=== PATIENT | male | born 1995 | race Two or more races ===

== ENCOUNTER 2024-09-11 16:15 | Emergency (ER) | payer OTHER ==
[~2024-09-11] VITALS: Ht 170.2 cm; Wt 107.0 kg
[2024-09-11 17:44] LABS: BASO % 0.5 % (0.1-1.2); EOS # 0.13 (0.04-0.54); EOS % 1.5 % (0.7-7.0); HEMATOCRIT 39.5 % (40.1-51.0); HEMOGLOBIN 13.6 g/dL (13.7-17.5); LYMPH # 2.09 (1.18-3.74); LYMPH % 24.6 % (19.3-53.1); MEAN CORPUSCULAR HEMOGLOBIN 29.5 pg (25.6-32.2); MONO # 0.31 (0.24-0.82); MONO % 3.6 % (4.7-12.5); NEUT # 5.91 (1.56-6.13); NEUT % 69.4 % (34.0-71.1); PLATELET COUNT 343 K/uL (163-369); RED BLOOD COUNT 4.61 M/uL (4.63-6.08); RED CELL DISTRIBUTION WIDTH 12.6 % (11.6-14.4)
[2024-09-11 18:05] LABS: CREATININE SERUM 0.94 mg/dL (0.70-1.30); GFR 94.88; POTASSIUM 4.09 mEq/L (3.5-5.1)
[2024-09-11 18:48] LABS: URINE APPEARANCE Clear; URINE BILIRRUBIN Negative (NEGATIVE); URINE BLOOD Trace; URINE COLOR Yellow; URINE GLUCOSE Negative (NEGATIVE); URINE KETONE Negative (NEGATIVE); URINE LEUKOCYTE Negative; URINE NITRATE Negative; URINE PROTEIN Negative (NEGATIVE); URINE UROBILINOGEN 0.2 E.U./dl
[2024-09-11 18:52] LABS: URINE BACTERIA 15.9 uL (0.0-1933); URINE EPITHELIAL CELLS 2.2 uL (0.0-38.8); URINE RBC 8.6 uL (0.0-20.8); URINE WBC 2.5 uL (0.0-23.2)
[2024-09-11 19:02] LABS: URINE CAST 0.29 uL (0.0-1.40)
== END 2024-09-11 19:35 | disposition home or self-care (01) ==
LOC: ER 16:42
PROVIDERS: General Practice
DX: R00.2 Palpitations (principal); F43.9 Reaction to severe stress, unspecified